=== PATIENT | female | born 1955 | race Caucasian/White ===

== ENCOUNTER → 2024-08-20 | Outpatient (CLI) | payer MEDICARE, OTHER, SELFPAY ==
--- NOTE | 2024-08-20 08:00 | ASPIG_PTH ---
PATIENT: ALLY DAWN LOC: [facility] U#:[id number] AGE/SX: 69/F ROOM: RE08/20/[address]: Dr. Manohar Orantes MD : [id number] BED: DIS: 08/20/2024 SPEC #: [id number] RECD: 08/20/24 08:45 STATUS: TYSON REMaria Ines #: [id number] RAMO: 08/20/24 08:[address]: Manohar Orantes DEPT: CYTOLOGY RECD BY: Richy Hughes ENTERED: 08/20/24 10:20 SP TYPE: ASP OUT OTHR DR: MELINDA Gilliland Tissues: A - Thyroid gland, NOS Procedures: FNA Specimen Adequacy Special Stain Group II Surgery Specimen Level IV Cytology Other HEADER OPERATION: Fine needle aspiration of thyroid nodule PRE-OP DIAGNOSIS: Thyroid nodule TISSUE SUBMITTED: A- Right superior thyroid nodule DIAGNOSIS CYTOLOGY A. Thyroid, right superior, nodule, FNA: * Atypia of undetermined significance (TBS III) - see Comment. COMMENT The specimen is evaluated at the time of biopsy by Dr. Feldman. Immediate Evaluation = 1. Blood. 2. Adeqaute. Per recommendations and a clinician-approved plan (a call was made to the referring doctor about the recommendation), genomic testing (Afirma) has been submitted. Results will be reported as an addendum and faxed to clinician. CYTOLOGY STUDY Slides are reviewed. CYTOLOGY GROSS A. Received is a fine needle aspiration of thyroid nodule with 2 DQ and 3 PAP labeled with the patient's name and and designated per the requisition as Right superior thyroid nodule. Submitted for cytology preparation. 08/20/2024 [facility]: [id number] ADDENDUM ADDENDUM ADDENDUM ADDENDUM ADDENDUM ADDENDUM ADDENDUM 09/09/2024 10:26 ADDENDUM 09/09/2024 10:26 ADDENDUM 09/09/2024 10:26 ADDENDUM 09/09/2024 10:26 ADDENDUM 09/09/2024 10:26 AFIRMA RESULTS REPORT RESULTS INTERPRETATION: The result of this 2.6 cm Pennock III nodule A is Afirma GSC benign, which suggests a low risk of cancer of approximately 4%. Please see complete report in e-chart or EMR
== END | disposition home or self-care (01) ==
LOC: LABSPEC 10:18
PROVIDERS: PCP Physician Assistant; Visit Provider Surgery
DX: E04.1 Nontoxic single thyroid nodule (principal)
CPT/HCPCS: 88161; 88172; 88305; 88313